=== PATIENT | female | born 1980 | race Caucasian/White ===

== ENCOUNTER → 2018-07-17 12:17 | Outpatient (CLI) | payer BC, SELFPAY ==
--- NOTE | 2018-07-17 | DI.US.S_ITS ---
PROCEDURE: US PERIPH VENOUS LOW EXTREM LT INDICATIONS: ACUTE LEFT LEG PAIN, AT RISK FOR CLOTS TECHNIQUE: Real-time imaging, as well as color and pulse Doppler interrogation, were performed of the lower extremity deep veins from the inguinal ligament to the popliteal fossa. COMPARISON: None. FINDINGS: The deep veins are normally compressible, and free of intraluminal thrombus. Color and pulse Doppler demonstrate normal phasic intraluminal flow. There is normal augmentation response to distal compression maneuver. IMPRESSION: No evidence of the left lower extremity deep vein thrombosis. Dictated by: Chad Fountain M.D. on 07/17/2018 at 13:24 Approved by: Chad Fountain M.D. on 07/17/2018 at 13:32
== END ==
PROVIDERS: PCP Nurse Practitioner Family; Visit Provider Nurse Practitioner Family
DX: M79.605 Pain in left leg (principal)
CPT/HCPCS: 93971

== ENCOUNTER → 2019-04-22 14:01 | Outpatient (CLI) | payer BC, SELFPAY ==
--- NOTE | 2019-04-22 | DI.US.S_ITS ---
PROCEDURE: US THYROID INDICATIONS: NON TOXIC GOITER, UNSPECIFIED TECHNIQUE: Real-time scanning was performed of the thyroid gland, with image documentation. COMPARISON: None. FINDINGS: Right: Thyroid lobe measures 3.7 x 1.3 x 1.4 cm, and is homogeneous in echotexture. Left: Thyroid lobe measures 4.2 x 1.5 x 1.3 cm, and is homogenous in echotexture. Isthmus: 3.0 mm thick. Nodule number: 1 Location: Left superior Size: 0.5 x 0.6 x 0.3 cm. Composition: Pericholecystic Echogenicity: Anechoic Shape: wider than tall. Margins: Smooth Echogenic foci: None Total points: 0 ACR TI-RADS category: Nodule number: 2 Location: Right mid Size: 1.0 x 0.6 x 0.7 cm. Composition: Solid Echogenicity: Hypoechoic Shape: wider than tall. Margins: Smooth Echogenic foci: None Total points: 4 ACR TI-RADS category: Moderately suspicious IMPRESSION: Left colloid cyst and subcentimeter solid right hypoechoic nodule. Recommend continued followup ultrasound as detailed below. ACR TI-RADS definitions and recommendations: TI-RADS 1 (benign): 0 points. FNA not needed. TI-RADS 2 (not suspicious): 2 points. FNA not needed. TI-RADS 3 (mildly suspicious): 3 points. * FNA if 2.5 cm or larger, follow up if 1.5 cm or larger (at 1, 3, and 5 years). TI-RADS 4 (moderately suspicious): 4-6 points. * FNA if 1.5 cm or larger, follow up if 1 cm or larger (at 1, 2, 3, and 5 years). TI-RADS 5 (highly suspicious): 7 points or more. * FNA if 1 cm or larger, follow up if 0.5 cm or larger (every year for 5 years). Dictated by: Jf HOLT Interpreted: Harriet Lewis MD on 04/22/2019 at 15:36 Approved by: Harriet Lewis M.D. on 04/22/2019 at 17:50
== END ==
PROVIDERS: PCP Nurse Practitioner Family; Visit Provider Nurse Practitioner Family
DX: E04.2 Nontoxic multinodular goiter (principal)
CPT/HCPCS: 76536

== ENCOUNTER 2019-05-09 15:53 | Emergency (ER) | payer BC, SELFPAY ==
[2019-05-09 15:56] VITALS: BP 146/90; PULSE 91; RESP 16; TEMP 36.8; O2SAT 98; BMI 35.6
--- NOTE | 2019-05-09 16:30 | DI.RAD.S_ITS ---
PROCEDURE: XR CHEST 2V INDICATIONS: chest pain TECHNIQUE: 2 views of the chest were acquired. COMPARISON: None. FINDINGS: Surgical changes and devices: None. Lungs and pleura: Lungs are clear. No pleural effusions or pneumothorax. Mediastinum: Mediastinal contours are normal. Heart size is normal. Bones and chest wall: No suspicious bony abnormalities. Soft tissues appear unremarkable. IMPRESSION: No acute disease Dictated by: David Medina M.D. on 05/09/2019 at 17:02 Approved by: David Medina M.D. on 05/09/2019 at 17:03
[2019-05-09] MEDS: IBUPROFEN 400 MG TABLET 800 MG PO (16:37)
--- NOTE | 2019-05-09 17:00 | ED_ITS ---
HPI - URI/Sore Throat <Gabby Villalpando PA-C - Last Filed: 05/09/19 20:50> General Chief Complaint: Upper Respiratory Symptoms Stated Complaint: rib pain right side Time Seen by Provider: 05/09/19 17:00 Source: patient Mode of arrival: Ambulatory Limitations: no limitations History of Present Illness HPI Narrative: This 38-year-old female comes to ED secondary to right-sided rib pain associated with cough. She has had a cough for several weeks, was started on albuterol and prednisone 10 days ago for reactive airways but did not improve. She saw her PCP yesterday who diagnosed her with pneumonia, states no chest x-ray done at that time. She was started on a Z-Abe and Tessalon Perles. She thinks maybe the Tessalon helps cough for a little while. She has not had any fever. She states she has not had any sinus, nasal or ear symptoms aside from maybe a little bit of drainage in the last couple of days. She denies sore throat. She denies new wheeze or dyspnea today and states pain is localized. She states that cough is mainly dry during the day, went at nighttime. She states that she tends to sleep okay until 4 or 5:00 a.m. when she wakes up with cough. This morning, she had vomiting after a coughing episode but has not had any since. She states that she had milder rib pain yesterday but felt acutely worse today. She has been trying to work but did not go today due to the pain and, Related Data Home Medications Medication Instructions Recorded Confirmed albuterol sulfate 2 puff INHALATION Q4H PRN 05/09/19 05/09/19 azithromycin 250 mg PO DAILY 05/09/19 05/09/19 benzonatate 100 - 200 mg PO PRN PRN 05/09/19 05/09/19 norethindrone-ethin estradiol 1 tab PO DAILY 05/09/19 05/09/19 [Necon 0.5/35 (28)] Previous Rx's Medication Instructions Recorded naproxen 500 mg PO Q12H #20 tab 05/09/19 promethazine-codeine 5 ml PO Q4H PRN #120 ml 05/09/19 Allergies Allergy/AdvReac Type Severity Reaction Status Date / Time No Known Drug Allergies Allergy Verified 05/09/19 15:56 Review of Systems <Gabby Villalpando PA-C - Last Filed: 05/09/19 20:50> Review of Systems ROS Unobtainable: All systems reviewed & are unremarkable except as noted in HPI and below Patient History <Gabby Villalpando PA-C - Last Filed: 05/09/19 20:50> Medical History (Updated 05/09/19 @ 18:42 by Gabby Villalpando PA-C) Healthy female adult (Chronic) Surgical History (Updated 05/09/19 @ 17:16 by Gabby Villalpando PA-C) No history of previous surgery (Chronic) Social History (Updated 05/09/19 @ 17:16 by Gabby Villalpando PA-C) Smoking Status: Former smoker additional social history: Quit tobacco 2006 alcohol intake frequency: holidays/special occasions only Substance Use Type: does not use Exam <Gabby Villalpando PA-C - Last Filed: 05/09/19 20:50> Narrative Exam Narrative: GENERAL APPEARANCE: Patient sitting comfortably, in no distress. HEAD: No sinus TTP. EYES: PERRL, EOMI. EARS: Normal auditory canals, TMS intact with normal light reflexes. ORAL CAVITY: Normal oropharynx. THROAT: Clear. NECK/THYROID: Neck supple, full range of motion, few small anterior cervical nodes LUNGS: Coarse breath sounds, diminished with some wheeze on the right, splinting, frequent coarse cough HEART: RRR without murmur, nl S1, S2, no S3 or S4. EXTREMITIES: No edema, no calf tender DERMATOLOGIC: No exanthem Initial Vital Signs Initial Vital Signs: Vital Signs Temperature 98.2 F 05/09/19 15:56 Pulse Rate 91 H 05/09/19 15:56 Respiratory Rate 16 05/09/19 15:56 Blood Pressure 146/90 H 05/09/19 15:56 Pulse Oximetry 98 05/09/19 15:56 <Amanda Hatch DO - Last Filed: 05/10/19 07:36> Initial Vital Signs Initial Vital Signs: Vital Signs Temperature 98.2 F 05/09/19 15:56 Pulse Rate 91 H 05/09/19 15:56 Respiratory Rate 16 05/09/19 15:56 Blood Pressure 146/90 H 05/09/19 15:56 Pulse Oximetry 98 05/09/19 15:56 Course <Gabby Villalpando PA-C - Last Filed: 05/09/19 20:50> Course Additional Information: Suspect intercostal strain due to patient's persistent cough. She was already given a course of steroids and has inhaler which she feels works sufficiently. She was started on antibiotics. No pneumonia or acute rib findings on x-ray. She has seen respiratory therapy and reviewed pain control measures. She was given incentive spirometer. She will use her Tessalon during the day and was given a prescription for promethazine with codeine for nighttime if needed. She agreed to return if any acutely worsening symptoms Orders Ordered: Discontinued Medications Benzonatate (Tessalon Perles) 200 mg PO NOW ONE Stop: 05/09/19 17:24 Last Admin: 05/09/19 17:40 Dose: 200 mg Documented by: ARRINGTO Ibuprofen (Advil) 400 mg PO NOW ONE Stop: 05/09/19 16:31 Last Admin: 05/09/19 16:38 Dose: Not Given Documented by: ARRINGTO Ibuprofen (Advil) 800 mg PO NOW ONE Stop: 05/09/19 16:35 Last Admin: 05/09/19 16:37 Dose: 800 mg [facility] V[facility] Sign[facility] Vital signs: Vital Signs - 8 hr 05/09/19 15:56 05/09/19 18:21 Temperature 98.2 F Pulse Rate 91 H 67 Respiratory Rate 16 20 Blood Pressure 146/90 H Blood Pressure [Right Arm] 132/94 H Pulse Oximetry 98 99 <Amanda Hatch DO - Last Filed: 05/10/19 07:36> Orders Ordered: Discontinued Medications Benzonatate (Tessalon Perles) 200 mg PO NOW ONE Stop: 05/09/19 17:24 Last Admin: 05/09/19 17:40 Dose: 200 mg Documented by: ARRINGTO Ibuprofen (Advil) 400 mg PO NOW ONE Stop: 05/09/19 16:31 Last Admin: 05/09/19 16:38 Dose: Not Given Documented by: ARRINGTO Ibuprofen (Advil) 800 mg PO NOW ONE Stop: 05/09/19 16:35 Last Admin: 05/09/19 16:37 Dose: 800 mg [facility] Vital Signs Vital signs: Vital Signs - 8 hr 05/09/19 15:56 05/09/19 18:21 Temperature 98.2 F Pulse Rate 91 H 67 Respiratory Rate 16 20 Blood Pressure 146/90 H Blood Pressure [Right Arm] 132/94 H Pulse Oximetry 98 99 MDM - URI/Sore Throat <Gabby Villalpando PA-C - Last Filed: 05/09/19 20:50> Imaging Data Chest x-ray: Radiologist's impression: [address] [address] XRay Report Signed Patient: Etelvina Youngblood MMR#: [id number] : 1980Acct:[id number] Age/Sex: 38 / FDate of Service: 05/09/19 Loc: ED Accession Number: [id number] Procedure: XR chest 2V Ordering Provider: Amanda Hatch D.O. PROCEDURE: XR CHEST 2V INDICATIONS: chest pain TECHNIQUE: 2 views of the chest were acquired. COMPARISON: None. FINDINGS: Surgical changes and devices: None. Lungs and pleura: Lungs are clear. No pleural effusions or pneumothorax. Mediastinum: Mediastinal contours are normal. Heart size is normal. Bones and chest wall: No suspicious bony abnormalities. Soft tissues appear unremarkable. IMPRESSION: No acute disease Dictated by: David Medina M.D. on 05/09/2019 at 17:02 Approved by: David Medina M.D. on 05/09/2019 at 17:03 ECG Data Attestation: I personally reviewed and interpreted this ECG as follows: (Normal sinus rhythm, rate 74, normal axis) Discharge Plan Departure Patient Disposition: Home Clinical Impression: Bronchitis Intercostal muscle strain Qualifiers: Encounter type: initial encounter Qualified Code(s): S29.011A - Strain of muscle and tendon of front wall of thorax, initial encounter Reactive airway disease Qualifiers: Asthma severity: mild Asthma persistence: unspecified Qualified Code(s): J45.909 - Unspecified asthma, uncomplicated Discharge Date/Time: 05/09/19 18:57 Instructions: DI for Rib Fracture, DI for Acute Bronchitis, DI for Reactive Airway Disease-Adult Activity Restrictions/Additional Instructions: There was no visible rib fracture or injury on your x-ray today, however I have given you instructions for rib fracture since they are similar. Please use the incentive spirometer and also the techniques that the respiratory therapist showed you to help with pain and taking deep breaths. Your x-ray did not show pneumonia, however you can continue the antibiotic if you wish. Also please continue your inhaler as needed with the spacer you were given. Continue the cough medicine you have during the daytime since it seems to be helping, and I have given you a prescription for promethazine with codeine to try when at home and nighttime as well. This can help with sleep as well as pain and cough. Please do not take drive as it may make you sleepy. Please be sure to follow up with your PCP next week to assess her progress, and return as we talked about if you have any acutely worsening symptoms in the interim Prescriptions: New promethazine-codeine 6.25-10 mg/5 mL syrup 5 ml PO Q4H PRN (Reason: cough and pain) Qty: 120 RF: 0 naproxen 500 mg tablet 500 mg PO Q12H Qty: 20 RF: 0 No Action azithromycin 250 mg tablet 250 mg PO DAILY RF: 0 benzonatate 100 mg capsule 100 - 200 mg PO PRN PRN (Reason: Cough) RF: 0 albuterol sulfate 90 mcg/actuation HFA aerosol inhaler 2 puff INHALATION Q4H PRN (Reason: Shortness Of Breath) RF: 0 Necon 0.5/35 (28) 0.5-35 mg-mcg tablet 1 tab PO DAILY RF: 0 Referrals: Rhiannon Walker ARNP [Primary Care Provider] - Stand Alone Forms: Work Release Note
[2019-05-09] MEDS: BENZONATATE 100 MG CAPSULE 200 MG PO (17:40)
[2019-05-09 18:21] VITALS: BP 132/94; PULSE 67; RESP 20; O2SAT 99
== END 2019-05-09 18:57 | disposition home or self-care (01) ==
PROVIDERS: Emergency Provider Internal Medicine; PCP Nurse Practitioner Family
DX: J40 Bronchitis, not specified as acute or chronic (principal); S29.011A Strain of muscle and tendon of front wall of thorax, initial encounter; R07.9 Chest pain, unspecified
CPT/HCPCS: 71046; 93005; 99282; 99284

== ENCOUNTER 2019-05-14 22:06 | Emergency (ER) | payer BC, SELFPAY ==
[2019-05-14 22:14] VITALS: BP 149/97; PULSE 80; RESP 18; O2SAT 98
[2019-05-14 23:15] VITALS: BP 113/58; PULSE 73; RESP 16; O2SAT 97
--- NOTE | 2019-05-14 23:36 | ED.BACK ---
HPI - Back Pain/Injury General Chief Complaint: Back Pain/Injury Stated Complaint: Pneumonia, worsening symptoms Time Seen by Provider: 05/14/19 23:36 Source: patient Mode of arrival: Ambulatory Limitations: no limitations History of Present Illness HPI Narrative: This is a 38-year-old female comes to the emergency department with complaint of right-sided chest pain. Patient states she was seen here recently. She was diagnosed pneumonia clinically [facility] primary care or walk-in clinic and was started on azithromycin. Patient states her symptoms were not improving. She was having, localized rib pain was seen here a negative chest x-ray. Patient states that her symptoms were improving and today and the she started coughing hard and felt a pop on the right side of her ribs and has pain localized just under her breast. She states it is painful to move, it is painful to bend over, it is painful if she coughs. She states deep inspiration does not bother her as much. She denies any productive cough currently she had some earlier but that had resolved. She denies any fevers or chills. She denies any abdominal pain. No nausea, no vomiting no GI or urinary symptoms. She is not appreciate any rashes or skin changes. She took ibuprofen at 9:00 p.m. with minimal improvement. She was given albuterol inhaler but has not noticed much difference Related Data Home Medications Medication Instructions Recorded Confirmed albuterol sulfate 2 puff INHALATION Q4H PRN 05/09/19 05/09/19 azithromycin 250 mg PO DAILY 05/09/19 05/09/19 benzonatate 100 - 200 mg PO PRN PRN 05/09/19 05/09/19 norethindrone-ethin estradiol 1 tab PO DAILY 05/09/19 05/09/19 [Necon 0.5/35 (28)] Previous Rx's Medication Instructions Recorded naproxen 500 mg PO Q12H #20 tab 05/09/19 promethazine-codeine 5 ml PO Q4H PRN #120 ml 05/09/19 tramadol 50 mg PO Q6H PRN #7 tab 05/15/19 Allergies Allergy/AdvReac Type Severity Reaction Status Date / Time No Known Drug Allergies Allergy Verified 05/09/19 15:56 Review of Systems Review of Systems ROS Unobtainable: All systems reviewed & are unremarkable except as noted in HPI and below Patient History Medical History Healthy female adult (Chronic) Surgical History (Updated 05/09/19 @ 17:16 by Gabby Villalpando PA-C) No history of previous surgery (Chronic) Social History Smoking Status: Former smoker additional social history: Quit tobacco 2006 alcohol intake frequency: holidays/special occasions only Substance Use Type: does not use Exam Narrative Exam Narrative: GENERAL: Alert and oriented x three, obese female in mild distress. HEENT: Head normocephalic, atraumatic, EOMI, pupils reactive, face symmetric, moist mucous membranes NECK: Supple, full range of motion CARDIOVASCULAR: Regular rate and rhythm without murmurs, rubs or gallops. RESPIRATORY: Breath sounds equal bilaterally, no wheezes rales or rhonchi. No rashes or skin changes, no vesicles. Patient has point tenderness on the 7th rib at the right anterior lateral angle. ABDOMEN: Soft, nontender. Normoactive bowel sounds all 4 quadrants. No guarding or rebound, rigidity, no mass : No CVA tenderness EXTREMITIES: Normal range of motion, no clubbing or edema. Neurovascularly intact NEUROLOGICAL: Cranial nerves II through XII grossly intact. Moving all extremities SKIN: Warm, dry, no petechiae, no rashes or lesions. Initial Vital Signs Initial Vital Signs: Vital Signs Pulse Rate 80 05/14/19 22:14 Respiratory Rate 18 05/14/19 22:14 Blood Pressure 149/97 H 05/14/19 22:14 Pulse Oximetry 98 05/14/19 22:14 Course Orders Ordered: ED Orders 05/14/19 23:51 XR chest 2V Stat Discontinued Medications Tramadol HCl (Ultram 50mg Prepack) 1 bottle MISC SEEINSTR ONE Stop: 05/15/19 00:49 Last Admin: 05/15/19 01:04 Dose: 1 bottle Documented by: BAKARI Vital Signs Vital signs: Vital Signs - 8 hr 05/14/19 22:14 05/14/19 23:15 05/15/19 01:08 Pulse Rate 80 73 75 Respiratory Rate 18 16 18 Blood Pressure 149/97 H 129/79 Blood Pressure [Left Arm] 113/58 L Pulse Oximetry 98 97 100 MDM - Back Pain/Injury Imaging Data Chest x-ray: Attestation: I personally reviewed and interpreted this imaging study as follows: My impression: nap, no infiltrate, no opacities or nodule noted. no fracture, no pneumothorax. normal mediastinum. [facility] Narrative Medical decision making narrative: Patient had sudden onset of increase of pain while coughing felt like something popped in her right rib region. Suspect patient either has intercostal strain or possibly a very small rib fracture, or rib out.Patient drove herself so was given a prepack of Ultram if she states codeine and Vicodin do not do well. She has tried NSAIDs with minimal improvement. Discharge Plan Departure Patient Disposition: Home Clinical Impression: Rib pain on right side Discharge Date/Time: 05/15/19 01:08 Activity Restrictions/Additional Instructions: Follow up with primary care for recheck in the next 3-5 days. You may continue to ibuprofen up to 800mg every 8 hours. You may also take narcotic pain medication as prescribed, this medication can make you sleepy do not drive, perform hazardous activities or make any major decisions while taking this medication. Return to the emergency department for fevers, difficulty breathing, coughing up blood, passing out, persistent vomiting, new shortness of breath, no abdominal pain, new numbness weakness or other new or concerning symptoms. Prescriptions: New tramadol 50 mg tablet 50 mg PO Q6H PRN (Reason: pain) Qty: 7 RF: 0 No Action azithromycin 250 mg tablet 250 mg PO DAILY RF: 0 benzonatate 100 mg capsule 100 - 200 mg PO PRN PRN (Reason: Cough) RF: 0 albuterol sulfate 90 mcg/actuation HFA aerosol inhaler 2 puff INHALATION Q4H PRN (Reason: Shortness Of Breath) RF: 0 Necon 0.5/35 (28) 0.5-35 mg-mcg tablet 1 tab PO DAILY RF: 0 promethazine-codeine 6.25-10 mg/5 mL syrup 5 ml PO Q4H PRN (Reason: cough and pain) Qty: 120 RF: 0 naproxen 500 mg tablet 500 mg PO Q12H Qty: 20 RF: 0 Referrals: Rhiannon Walker ARNP [Primary Care Provider] -
--- NOTE | 2019-05-14 23:51 | DI.RAD.S_ITS ---
PROCEDURE: XR CHEST 2V INDICATIONS: right rib pain post hard cough, had prior worse now. TECHNIQUE: 2 views of the chest were acquired. COMPARISON: [facility], CR, XR CHEST 2V, 05/09/2019, 16:33. FINDINGS: Surgical changes and devices: Cholecystectomy clips. Lungs and pleura: Lungs are clear. No pleural effusions or pneumothorax. Mediastinum: Mediastinal contours are normal. Heart size is normal. Bones and chest wall: No suspicious bony abnormalities. Soft tissues appear unremarkable. IMPRESSION: No acute cardiopulmonary disease process. Dictated by: Mile Gonzalez MD, PhD on 05/15/2019 at 8:47 Approved by: Mile Gonzalez MD, PhD on 05/15/2019 at 8:47
[2019-05-15] MEDS: TRAMADOL 50 MG PREPACK 1 BOTTLE MISC (01:04)
[2019-05-15 01:08] VITALS: BP 129/79; PULSE 75; RESP 18; O2SAT 100
== END 2019-05-15 01:08 | disposition home or self-care (01) ==
PROVIDERS: Emergency Provider Emergency Medicine; PCP Nurse Practitioner Family
DX: R07.81 Pleurodynia (principal); R07.9 Chest pain, unspecified
CPT/HCPCS: 71046; 99282; 99283